=== PATIENT | male | born 1940 | race Caucasian/White ===

== ENCOUNTER 2017-01-25 12:16 | Emergency (ER) | payer OTHER ==
[~2017-01-25] VITALS: Ht 182.9 cm; Wt 76.3 kg
[2017-01-25 13:06] LABS: MCH 33.5 PG (29.0-34.0); MCHC 34.7 G/DL (30.0-36.0); MCV 96.4 FL (86-99); MEAN PLAT.VOLUME 9.6 uM^3 (9.0-12.4); PLATELET COUNT 253 K/uL (156-360); RBC DIS.WIDTH-SD 46.6 % (39-53); RED BLOOD COUNT 3.94 M/uL (4.00-5.50); WHITE BLOOD COUNT 7.3 K/uL (4.1-10.2)
[2017-01-25 13:12] LABS: INTER. NORMALIZED RATIO 1.8; PROTHROMBIN TIME 20.2 SEC (10.2-12.9)
[2017-01-25 13:15] LABS: CHLORIDE 99 mEq/L (99-109); POTASSIUM 4.4 mEq/L (3.7-5.4); SODIUM 135 mEq/L (136-147)
[2017-01-25 13:16] LABS: GLUCOSE 99 mg/dL (70-99)
[2017-01-25 13:18] LABS: ANION GAP 11 MEQ/L (2-14)
[2017-01-25 13:21] LABS: GFR ESTIMATE (CALCULATED) > 59 mL/min/; UREA NITROGEN (BUN) 19 mg/dL (9-23)
[2017-01-25 14:23] VITALS: BP 156/92
[2017-01-25] MEDS ORDERED: XARELTO15 MG PO (14:23)
== END 2017-01-25 14:24 | disposition home or self-care (01) ==
LOC: EME 12:16
DX: R04.0 Epistaxis (principal); Z79.01 Long term (current) use of anticoagulants; I48.2 Chronic atrial fibrillation; Z95.1 Presence of aortocoronary bypass graft; Z87.891 Personal history of nicotine dependence
CPT/HCPCS: 80048; 85027; 85610; 86850; 86900; 86901; 99281; 99284

== ENCOUNTER 2017-05-25 22:22 | Observation (INO) | payer OTHER ==
[~2017-05-25] VITALS: Ht 182.9 cm; Wt 83.3 kg
[~2017-05-25 22:22] MED LIST: XARELTO15 MG PO
[2017-05-25 22:45] LABS: HEMATOCRIT 37.1 % (38.0-50.0); HEMOGLOBIN 13.3 G/DL (12.5-16.6); MCH 34.2 PG (29.0-34.0); MCHC 35.8 G/DL (30.0-36.0); MCV 95.4 FL (86-99); PLATELET COUNT 263 K/uL (156-360); RBC DIS.WIDTH-CV 13.4 % (11.8-14.6); RBC DIS.WIDTH-SD 47.2 % (39-53); RED BLOOD COUNT 3.89 M/uL (4.00-5.50); WHITE BLOOD COUNT 7.7 K/uL (4.1-10.2)
[2017-05-25 22:58] LABS: ALBUMIN 4.2 g/dL (3.2-4.8)
[2017-05-25 22:59] LABS: CHLORIDE 98 mEq/L (99-109); SODIUM 131 mEq/L (136-147)
[2017-05-25 23:01] LABS: GLUCOSE 122 mg/dL (70-99); TOTAL PROTEIN 7.2 g/dL (6.4-8.3)
[2017-05-25 23:03] LABS: TOTAL BILIRUBIN 0.9 mg/dL (0.0-1.0)
[2017-05-25 23:04] LABS: ALKALINE PHOSPHATASE 71 IU/L (3-129)
[2017-05-25 23:05] LABS: CREATININE 0.8 mg/dL (0.6-1.3); GFR ESTIMATE (CALCULATED) > 59 mL/min/ (58.99-99999)
[2017-05-25 23:06] LABS: AST (GOT) 21 IU/L (2-34); UREA NITROGEN (BUN) 13 mg/dL (9-23)
[2017-05-25 23:06] LABS: APPEARANCE CLEAR ((CLEAR)); BILIRUBIN NEGATIVE; BLOOD NEGATIVE; COLOR YELLOW ((YELLOW)); GLUCOSE (STRIP) NEGATIVE; KETONES NEGATIVE; LEUKOCYTES NEGATIVE; NITRITE NEGATIVE; PROTEIN (STRIP) NEGATIVE; SPECIFIC GRAVITY 1.012 (1.000-1.030); UCUL ADDED? NO; UROBILINOGEN 0.2 MG/DL (0.2-1.0)
[2017-05-25 23:07] LABS: ALT (GPT) 26 IU/L (3-49)
[2017-05-25 23:08] LABS: LIPASE 8 U/L (1.0-51.0)
[2017-05-26 04:20] LABS: TROP-I INTERPRETATION NEGATIVE; TROPONIN-I < 0.01 ng/mL (0.0-0.30)
[2017-05-26 13:24] LABS: TROP-I INTERPRETATION NEGATIVE; TROPONIN-I < 0.01 ng/mL (0.0-0.30)
[2017-05-26] MEDS ORDERED: ALENDRONATE SOD70 MG PO (15:25)
[2017-05-26] MEDS ORDERED: PROTONIX40 MG PO (15:26)
[2017-05-26] MEDS ORDERED: ASPIR 8181 M1 PO (15:26)
[2017-05-26] MEDS ORDERED: IMDUR60 MG PO (15:26)
[2017-05-26] MEDS ORDERED: VITAMIN D31000 UNI2 PO (15:27)
[2017-05-26] MEDS ORDERED: CYANOCOBALAM1000 MCG PO (15:28)
[2017-05-26] MEDS ORDERED: ONCE DAILY1 EACH PO (15:28)
[2017-05-26] MEDS ORDERED: ALPHA LIPOIC ACID PO (15:29)
[2017-05-26] MEDS ORDERED: PRINIVIL5 MG PO (15:30)
[2017-05-26] MEDS ORDERED: METOPROLOL TART25 MG PO (15:30)
[2017-05-26] MEDS ORDERED: MYSOLINE50 MG PO (15:30)
[2017-05-26 15:31] VITALS: BP 134/90
[2017-05-26] MEDS ORDERED: LIPITOR20 MG PO (15:31)
[2017-05-26] MEDS ORDERED: NORVASC5 MG PO (15:31)
[2017-05-26] MEDS ORDERED: FLOMAX0.4 MG PO (15:32)
[2017-05-26] MEDS ORDERED: NAPROSYN500 MG PO (15:32)
[2017-05-26] MEDS ORDERED: GABAPENTIN100 MG PO (15:32)
[2017-05-26] MEDS ORDERED: XARELTO20 MG PO (15:33)
[2017-05-26] MEDS ORDERED: CILOSTAZOL100 MG PO (15:33)
[2017-05-26 18:14] LABS: TROP-I INTERPRETATION NEGATIVE; TROPONIN-I < 0.01 ng/mL (0.0-0.30)
[2017-05-26 19:30] VITALS: BP 142/86
[2017-05-26 21:40] VITALS: BP 128/89
[2017-05-27 06:26] LABS: HEMATOCRIT 37.6 % (38.0-50.0); HEMOGLOBIN 12.9 G/DL (12.5-16.6); MCH 33.3 PG (29.0-34.0); MCHC 34.3 G/DL (30.0-36.0); MCV 97.2 FL (86-99); PLATELET COUNT 254 K/uL (156-360); RBC DIS.WIDTH-CV 13.8 % (11.8-14.6); RBC DIS.WIDTH-SD 49.6 % (39-53); RED BLOOD COUNT 3.87 M/uL (4.00-5.50)
[2017-05-27 07:13] LABS: ALBUMIN 3.5 G/DL (3.2-4.8); ALKALINE PHOSPHATASE 61 IU/L (3-129); ALT (GPT) 19 IU/L (3-49); AST (GOT) 16 IU/L (2-34); CHLORIDE 98 MEQ/L (99-109); CREATININE 0.9 MG/DL (0.6-1.3); GFR ESTIMATE (CALCULATED) > 59 mL/min/ (58.99-99999); GLUCOSE 114 mg/dL (70-99); POTASSIUM 4.7 MEQ/L (3.7-5.4); SODIUM 134 MEQ/L (136-147); UREA NITROGEN (BUN) 14 mg/dL (9-23)
[2017-05-27 09:41] VITALS: BP 135/87
[2017-05-27 12:24] VITALS: BP 94/64
[2017-05-27 12:58] VITALS: BP 121/77
== END 2017-05-27 15:08 | disposition home or self-care (01) ==
LOC: EME 22:22 → EDOF 05-26 08:48 → ENRESERV 05-26 08:51 → EDOF 05-26 09:23 → ENRESERV 05-26 11:07 → 5WEST 05-26 12:24
PROVIDERS: Emergency Medicine; Internal Medicine
DX: R10.11 Right upper quadrant pain (principal); R10.13 Epigastric pain; K21.9 Gastro-esophageal reflux disease without esophagitis; I25.10 Atherosclerotic heart disease of native coronary artery without angina pectoris; I48.91 Unspecified atrial fibrillation; I73.9 Peripheral vascular disease, unspecified; E78.5 Hyperlipidemia, unspecified; I11.0 Hypertensive heart disease with heart failure; I50.9 Heart failure, unspecified; E11.40 Type 2 diabetes mellitus with diabetic neuropathy, unspecified; N40.0 Benign prostatic hyperplasia without lower urinary tract symptoms; Z95.1 Presence of aortocoronary bypass graft; Z79.01 Long term (current) use of anticoagulants; Z79.02 Long term (current) use of antithrombotics/antiplatelets; Z83.3 Family history of diabetes mellitus; Z80.8 Family history of malignant neoplasm of other organs or systems
CPT/HCPCS: 71275; 74177; 76705; 78227; 80053; 81003; 83690; 83880; 84484; 85027; 93005; 99281; 99284; A9537; G0378; J1940; J2270; J2405; J2805; J7030

== ENCOUNTER 2017-06-28 21:43 | Emergency (ER) | payer OTHER ==
[~2017-06-28] VITALS: Ht 182.9 cm; Wt 85.0 kg
[~2017-06-28 21:43] MED LIST changes: +ALENDRONATE SOD70 MG PO; +ALPHA LIPOIC ACID PO; +ASPIR 8181 M1 PO; +CILOSTAZOL100 MG PO; +CYANOCOBALAM1000 MCG PO; +FLOMAX0.4 MG PO; +GABAPENTIN100 MG PO; +IMDUR60 MG PO; +LIPITOR20 MG PO; +METOPROLOL TART25 MG PO; +MYSOLINE50 MG PO; +NAPROSYN500 MG PO; +NORVASC5 MG PO; +ONCE DAILY1 EACH PO; +PRINIVIL5 MG PO; +PROTONIX40 MG PO; +VITAMIN D31000 UNI2 PO; +XARELTO20 MG PO
[2017-06-28] MEDS ORDERED: PERCOCET 5/31 TABLET PO (23:13)
[2017-06-28 23:41] VITALS: BP 127/79
== END 2017-06-28 23:41 | disposition home or self-care (01) ==
LOC: EME 21:43
PROC: 2W3HX1Z Immobilization of Left Thumb using Splint (ICD-10-PCS; principal; 2017-06-28)
DX: S62.512A Displaced fracture of proximal phalanx of left thumb, initial encounter for closed fracture (principal); W00.0XXA Fall on same level due to ice and snow, initial encounter
CPT/HCPCS: 73130; 99281; 99284

== ENCOUNTER → 2017-07-28 | Outpatient (CLI) | payer MEDICARE, OTHER ==
[~2017-07-28] MED LIST changes: +PERCOCET 5/31 TABLET PO
== END | disposition home or self-care (01) ==
LOC: CDC 15:07
DX: Z01.810 Encounter for preprocedural cardiovascular examination (principal); I48.91 Unspecified atrial fibrillation; R94.31 Abnormal electrocardiogram [ECG] [EKG]
CPT/HCPCS: 93000

== ENCOUNTER 2017-09-16 15:19 | Inpatient (IN) | payer OTHER ==
[~2017-09-16] VITALS: Ht 182.9 cm; Wt 70.2 kg
[2017-09-16 15:56] LABS: HEMATOCRIT 32.1 % (38.0-50.0); HEMOGLOBIN 11.8 G/DL (12.5-16.6); MCH 34.5 PG (29.0-34.0); MCHC 36.8 G/DL (30.0-36.0); MCV 93.9 FL (86-99); PLATELET COUNT 278 K/uL (156-360); RBC DIS.WIDTH-CV 12.9 % (11.8-14.6); RBC DIS.WIDTH-SD 44.6 % (39-53); RED BLOOD COUNT 3.42 M/uL (4.00-5.50); WHITE BLOOD COUNT 5.9 K/uL (4.1-10.2)
[2017-09-16 16:05] LABS: CHLORIDE 89 mEq/L (99-109); POTASSIUM 4.5 mEq/L (3.7-5.4); SODIUM 122 mEq/L (136-147)
[2017-09-16 16:07] LABS: GLUCOSE 108 mg/dL (70-99)
[2017-09-16 16:11] LABS: CREATININE 0.8 mg/dL (0.6-1.3); GFR ESTIMATE (CALCULATED) > 59 mL/min/ (58.99-99999)
[2017-09-16 16:12] LABS: UREA NITROGEN (BUN) 11 mg/dL (9-23)
[2017-09-16 16:19] LABS: TROP-I INTERPRETATION NEGATIVE; TROPONIN-I < 0.01 ng/mL (0.0-0.30)
[2017-09-16 17:10] LABS: APPEARANCE CLEAR ((CLEAR)); BILIRUBIN NEGATIVE; BLOOD NEGATIVE; COLOR YELLOW ((YELLOW)); GLUCOSE (STRIP) NEGATIVE; KETONES 5; LEUKOCYTES TRACE; NITRITE NEGATIVE; PROTEIN (STRIP) NEGATIVE
[2017-09-16 17:16] LABS: BACTERIA 1+ /HPF; EPITHELIAL CELLS RARE /HPF; MUCUS NONE SEEN /LPF; RED BLOOD CELLS 0-5 /HPF (0-5); UCUL ADDED? NO; WHITE BLOOD CELLS 0-5 /HPF (0-5)
[2017-09-16] MEDS ORDERED: ALPHA-LIPOIC A300 MG PO (17:20)
[2017-09-16] MEDS ORDERED: ARTIFICIAL TEAR1510 BOTH EYES (17:26)
[2017-09-16] MEDS ORDERED: TYLENOL EXTRA500 MG PO (17:26)
[2017-09-16] MEDS ORDERED: CYMBALTA20 MG PO (17:27)
[2017-09-16 19:32] VITALS: BP 141/91
[2017-09-16 19:46] VITALS: BP 141/91
[2017-09-16 21:07] VITALS: BP 114/84
[2017-09-16 22:07] LABS: TROP-I INTERPRETATION NEGATIVE; TROPONIN-I < 0.01 ng/mL (0.0-0.30)
[2017-09-17] VITALS (8 sets, daily range): BP systolic 95–154; BP diastolic 65–99
[2017-09-17 05:58] LABS: HEMOGLOBIN 11.2 G/DL (12.5-16.6); MCH 33.5 PG (29.0-34.0); MCV 95.8 FL (86-99); PLATELET COUNT 304 K/uL (156-360); RBC DIS.WIDTH-CV 13.2 % (11.8-14.6); RBC DIS.WIDTH-SD 46.9 % (39-53); RED BLOOD COUNT 3.34 M/uL (4.00-5.50); WHITE BLOOD COUNT 6.2 K/uL (4.1-10.2)
[2017-09-17 06:13] LABS: TROP-I INTERPRETATION NEGATIVE; TROPONIN-I < 0.01 ng/mL (0.0-0.30)
[2017-09-17 09:45] LABS: CHLORIDE 92 MEQ/L (99-109); CREATININE 0.6 MG/DL (0.6-1.3); GFR ESTIMATE (CALCULATED) > 59 mL/min/ (58.99-99999); GLUCOSE 141 mg/dL (70-99); SODIUM 123 MEQ/L (136-147); UREA NITROGEN (BUN) 9 mg/dL (9-23)
[2017-09-17 11:39] LABS: INTER. NORMALIZED RATIO 1.9
[2017-09-17 11:41] LABS: PTT 37.4 SEC (25-37)
[2017-09-17 20:44] LABS: TROP-I INTERPRETATION NEGATIVE; TROPONIN-I 0.02 ng/mL (0.0-0.30)
[2017-09-17 23:10] LABS: CHLORIDE 94 mEq/L (99-109); POTASSIUM 4.2 mEq/L (3.7-5.4); SODIUM 127 mEq/L (136-147)
[2017-09-17 23:11] LABS: GLUCOSE 113 mg/dL (70-99)
[2017-09-17 23:15] LABS: CREATININE 0.9 mg/dL (0.6-1.3); GFR ESTIMATE (CALCULATED) > 59 mL/min/ (58.99-99999)
[2017-09-17 23:18] LABS: UREA NITROGEN (BUN) 28 mg/dL (9-23)
[2017-09-18] VITALS (9 sets, daily range): BP systolic 94–186; BP diastolic 62–112
[2017-09-18 02:04] LABS: TROP-I INTERPRETATION NEGATIVE; TROPONIN-I 0.02 ng/mL (0.0-0.30)
[2017-09-18 07:02] LABS: TROP-I INTERPRETATION NEGATIVE; TROPONIN-I < 0.01 ng/mL (0.0-0.30)
[2017-09-18 08:48] LABS: CHLORIDE 96 MEQ/L (99-109); CREATININE 0.8 MG/DL (0.6-1.3); GFR ESTIMATE (CALCULATED) > 59 mL/min/ (58.99-99999); GLUCOSE 110 mg/dL (70-99); POTASSIUM 4.1 MEQ/L (3.7-5.4); SODIUM 130 MEQ/L (136-147); UREA NITROGEN (BUN) 22 mg/dL (9-23)
[2017-09-18 09:17] LABS: THYROTROPIN (TSH) 2.5 MIU/L (0.4-5.5)
[2017-09-18 10:00] LABS: HEMATOCRIT 35.7 % (38.0-50.0); HEMOGLOBIN 12.8 G/DL (12.5-16.6); MCHC 35.9 G/DL (30.0-36.0); MCV 94.9 FL (86-99); PLATELET COUNT 313 K/uL (156-360); RBC DIS.WIDTH-CV 13.2 % (11.8-14.6); RBC DIS.WIDTH-SD 46.5 % (39-53); RED BLOOD COUNT 3.76 M/uL (4.00-5.50); WHITE BLOOD COUNT 7.3 K/uL (4.1-10.2)
[2017-09-18 16:21] LABS: CHLORIDE 92 MEQ/L (99-109); CREATININE 0.7 MG/DL (0.6-1.3); GFR ESTIMATE (CALCULATED) > 59 mL/min/ (58.99-99999); GLUCOSE 117 mg/dL (70-99); SODIUM 130 MEQ/L (136-147); UREA NITROGEN (BUN) 13 mg/dL (9-23)
[2017-09-18 22:49] LABS: CHLORIDE 93 mEq/L (99-109); POTASSIUM 3.8 mEq/L (3.7-5.4); SODIUM 125 mEq/L (136-147)
[2017-09-18 22:50] LABS: GLUCOSE 143 mg/dL (70-99)
[2017-09-18 22:54] LABS: CREATININE 0.8 mg/dL (0.6-1.3); GFR ESTIMATE (CALCULATED) > 59 mL/min/ (58.99-99999)
[2017-09-18 22:57] LABS: UREA NITROGEN (BUN) 22 mg/dL (9-23)
[2017-09-19 03:04] VITALS: BP 118/70
[2017-09-19 03:05] VITALS: BP 118/70
[2017-09-19 06:23] LABS: HEMATOCRIT 35.6 % (38.0-50.0); HEMOGLOBIN 12.5 G/DL (12.5-16.6); MCH 33.3 PG (29.0-34.0); MCHC 35.1 G/DL (30.0-36.0); MCV 94.9 FL (86-99); PLATELET COUNT 288 K/uL (156-360); RBC DIS.WIDTH-CV 13.5 % (11.8-14.6); RBC DIS.WIDTH-SD 47.3 % (39-53); RED BLOOD COUNT 3.75 M/uL (4.00-5.50); WHITE BLOOD COUNT 10.6 K/uL (4.1-10.2)
[2017-09-19 07:22] LABS: CHLORIDE 95 MEQ/L (99-109); CREATININE 0.8 MG/DL (0.6-1.3); GFR ESTIMATE (CALCULATED) > 59 mL/min/ (58.99-99999); GLUCOSE 121 mg/dL (70-99); POTASSIUM 3.7 MEQ/L (3.7-5.4); SODIUM 126 MEQ/L (136-147); UREA NITROGEN (BUN) 20 mg/dL (9-23)
[2017-09-19 07:28] VITALS: BP 127/80
[2017-09-19 11:38] LABS: HEMOGLOBIN A1c (GLYCOHEMOGLOB) 5.9 % (Below 5.7)
[2017-09-19 12:00] VITALS: BP 132/78
[2017-09-19 20:09] VITALS: BP 123/80
[2017-09-19 23:55] VITALS: BP 140/79
[2017-09-20 04:00] VITALS: BP 132/84
[2017-09-20 05:00] LABS: BASOPHIL (%) 0.3 % (0-1); EOSINOPHIL (%) 3.5 % (0-5); EOSINOPHIL COUNT 0.3 K/uL (0-0.3); HEMATOCRIT 32.7 % (38.0-50.0); IMMATURE GRANULOCYTE (%) 0.3 % (0.0-0.7); LYMPHOCYTE (%) 14.8 % (15-42); LYMPHOCYTE COUNT 1.3 K/uL (1.0-2.8); MCH 34.7 PG (29.0-34.0); MCHC 36.7 G/DL (30.0-36.0); MCV 94.5 FL (86-99); MONOCYTE (%) 10.8 % (3-12); NEUTROPHIL (%) 70.3 % (45-76); NEUTROPHIL COUNT 6.2 K/uL (1.8-6.4); PLATELET COUNT 302 K/uL (156-360); RBC DIS.WIDTH-CV 13.3 % (11.8-14.6); RBC DIS.WIDTH-SD 46.3 % (39-53); RED BLOOD COUNT 3.46 M/uL (4.00-5.50); WHITE BLOOD COUNT 8.9 K/uL (4.1-10.2)
[2017-09-20 05:28] LABS: CHLORIDE 98 mEq/L (99-109); POTASSIUM 4.1 mEq/L (3.7-5.4); SODIUM 128 mEq/L (136-147)
[2017-09-20 05:30] LABS: GLUCOSE 111 mg/dL (70-99)
[2017-09-20 05:34] LABS: CREATININE 0.8 mg/dL (0.6-1.3); GFR ESTIMATE (CALCULATED) > 59 mL/min/ (58.99-99999)
[2017-09-20 05:35] LABS: UREA NITROGEN (BUN) 14 mg/dL (9-23)
[2017-09-20 07:40] VITALS: BP 134/96
== END 2017-09-20 15:36 | disposition home or self-care (01) | DRG 287 ==
LOC: EME 15:19 → 4EAST 17:06 → EDOF 17:06 → ENRESERV 17:08 → 4EAST 19:19
PROVIDERS: Emergency Medicine; Internal Medicine; Internal Medicine Cardiovascular Disease; Internal Medicine Nephrology
DX: I25.110 Atherosclerotic heart disease of native coronary artery with unstable angina pectoris (principal); I25.700 Atherosclerosis of coronary artery bypass graft(s), unspecified, with unstable angina pectoris; T82.855A Stenosis of coronary artery stent, initial encounter; E22.2 Syndrome of inappropriate secretion of antidiuretic hormone; T43.215A Adverse effect of selective serotonin and norepinephrine reuptake inhibitors, initial encounter; T46.4X5A Adverse effect of angiotensin-converting-enzyme inhibitors, initial encounter; T40.605A Adverse effect of unspecified narcotics, initial encounter; I48.0 Paroxysmal atrial fibrillation; I48.2 Chronic atrial fibrillation; E86.0 Dehydration; I25.84 Coronary atherosclerosis due to calcified coronary lesion; E11.65 Type 2 diabetes mellitus with hyperglycemia; E87.2 Acidosis; E11.51 Type 2 diabetes mellitus with diabetic peripheral angiopathy without gangrene; R19.7 Diarrhea, unspecified; E11.40 Type 2 diabetes mellitus with diabetic neuropathy, unspecified; I10 Essential (primary) hypertension; K21.9 Gastro-esophageal reflux disease without esophagitis; E78.5 Hyperlipidemia, unspecified; N40.0 Benign prostatic hyperplasia without lower urinary tract symptoms; Z95.820 Peripheral vascular angioplasty status with implants and grafts; Z87.891 Personal history of nicotine dependence; Z79.01 Long term (current) use of anticoagulants; Z79.82 Long term (current) use of aspirin
CPT/HCPCS: 71045; 71046; 71260; 76882; 80048; 80048 91; 81003; 82533 91; 82948; 83036; 83930; 83935; 84300; 84443; 84484; 85025; 85027; 85347; 85610; 85730; 87449; 87493; 93005; 94799; 99281; 99285; C1769; C1887; J0153; J0456; J0696; J1644; J2250; J2405; J3010; J7030

== ENCOUNTER 2017-10-12 21:21 | Inpatient (IN) | payer OTHER ==
[~2017-10-12] VITALS: Ht 182.9 cm; Wt 95.6 kg
[~2017-10-12 21:21] MED LIST changes: +ALPHA-LIPOIC A300 MG PO; +ARTIFICIAL TEAR1510 BOTH EYES; +CYMBALTA20 MG PO; +LASIX20 MG PO; +LYRICA75 MG PO; +TYLENOL EXTRA500 MG PO
[2017-10-13 10:59] VITALS: BP 138/91
[2017-10-13 11:27] LABS: INTER. NORMALIZED RATIO 1.4
[2017-10-13 19:07] LABS: HEMATOCRIT 31.5 % (38.0-50.0); HEMOGLOBIN 10.9 G/DL (12.5-16.6); MCH 33.7 PG (29.0-34.0); MCHC 34.6 G/DL (30.0-36.0); MCV 97.5 FL (86-99); PLATELET COUNT 246 K/uL (156-360); RBC DIS.WIDTH-CV 13.8 % (11.8-14.6); RBC DIS.WIDTH-SD 49.9 % (39-53); RED BLOOD COUNT 3.23 M/uL (4.00-5.50); WHITE BLOOD COUNT 8.5 K/uL (4.1-10.2)
[2017-10-13 19:27] LABS: TROP-I INTERPRETATION NEGATIVE; TROPONIN-I < 0.01 ng/mL (0.0-0.30)
[2017-10-13 19:29] LABS: CHLORIDE 104 MEQ/L (99-109); CREATININE 0.6 MG/DL (0.6-1.3); GFR ESTIMATE (CALCULATED) > 59 mL/min/ (58.99-99999); GLUCOSE 153 mg/dL (70-99); SODIUM 136 MEQ/L (136-147); UREA NITROGEN (BUN) 12 mg/dL (9-23)
[2017-10-14] VITALS (8 sets, daily range): BP systolic 110–152; BP diastolic 58–89
[2017-10-14 03:46] LABS: HEMATOCRIT 32.6 % (38.0-50.0); HEMOGLOBIN 11.2 G/DL (12.5-16.6); MCH 33.2 PG (29.0-34.0); MCHC 34.4 G/DL (30.0-36.0); MCV 96.7 FL (86-99); PLATELET COUNT 209 K/uL (156-360); RBC DIS.WIDTH-CV 15.3 % (11.8-14.6); RBC DIS.WIDTH-SD 54.2 % (39-53); RED BLOOD COUNT 3.37 M/uL (4.00-5.50); WHITE BLOOD COUNT 11.5 K/uL (4.1-10.2)
[2017-10-14 03:57] LABS: CHLORIDE 107 mEq/L (99-109); POTASSIUM 4.7 mEq/L (3.7-5.4); SODIUM 139 mEq/L (136-147)
[2017-10-14 03:58] LABS: GLUCOSE 176 mg/dL (70-99)
[2017-10-14 04:02] LABS: CREATININE 0.8 mg/dL (0.6-1.3); GFR ESTIMATE (CALCULATED) > 59 mL/min/ (58.99-99999)
[2017-10-14 04:03] LABS: UREA NITROGEN (BUN) 13 mg/dL (9-23)
[2017-10-14 04:07] LABS: TROP-I INTERPRETATION NEGATIVE; TROPONIN-I 0.02 ng/mL (0.0-0.30)
[2017-10-14 12:46] LABS: BASOPHIL (%) 0.4 % (0-1); EOSINOPHIL (%) 0.4 % (0-5); IMMATURE GRANULOCYTE (%) 0.3 % (0.0-0.7); LYMPHOCYTE (%) 17.6 % (15-42); LYMPHOCYTE COUNT 1.2 K/uL (1.0-2.8); MCH 32.9 PG (29.0-34.0); MCHC 34.1 G/DL (30.0-36.0); MCV 96.4 FL (86-99); MONOCYTE (%) 15.9 % (3-12); MONOCYTE COUNT 1.1 K/uL (0-0.8); NEUTROPHIL (%) 65.4 % (45-76); NEUTROPHIL COUNT 4.5 K/uL (1.8-6.4); PLATELET COUNT 192 K/uL (156-360); RBC DIS.WIDTH-CV 15.9 % (11.8-14.6); RBC DIS.WIDTH-SD 56.5 % (39-53); WHITE BLOOD COUNT 6.8 K/uL (4.1-10.2)
[2017-10-14 12:48] LABS: HEMOGLOBIN 9.2 G/DL (12.5-16.6)
[2017-10-15] VITALS (22 sets, daily range): BP systolic 92–161; BP diastolic 56–101
[2017-10-15 05:23] LABS: BASOPHIL (%) 0.4 % (0-1); EOSINOPHIL COUNT 0.3 K/uL (0-0.3); HEMATOCRIT 26.5 % (38.0-50.0); HEMOGLOBIN 9.1 G/DL (12.5-16.6); IMMATURE GRANULOCYTE (%) 0.4 % (0.0-0.7); LYMPHOCYTE (%) 20.7 % (15-42); LYMPHOCYTE COUNT 1.5 K/uL (1.0-2.8); MCH 33.3 PG (29.0-34.0); MCHC 34.3 G/DL (30.0-36.0); MCV 97.1 FL (86-99); MONOCYTE (%) 12.4 % (3-12); MONOCYTE COUNT 0.9 K/uL (0-0.8); NEUTROPHIL (%) 62.1 % (45-76); NEUTROPHIL COUNT 4.4 K/uL (1.8-6.4); PLATELET COUNT 191 K/uL (156-360); RBC DIS.WIDTH-CV 15.9 % (11.8-14.6); RBC DIS.WIDTH-SD 56.3 % (39-53); RED BLOOD COUNT 2.73 M/uL (4.00-5.50); WHITE BLOOD COUNT 7.1 K/uL (4.1-10.2)
[2017-10-15 05:54] LABS: CHLORIDE 99 MEQ/L (99-109); CREATININE 0.6 MG/DL (0.6-1.3); GFR ESTIMATE (CALCULATED) > 59 mL/min/ (58.99-99999); GLUCOSE 133 mg/dL (70-99); MAGNESIUM 1.4 mg/dl (1.3-2.7); PHOSPHORUS 3.2 mg/dL (2.5-4.9); POTASSIUM 4.6 MEQ/L (3.7-5.4); UREA NITROGEN (BUN) 9 mg/dL (9-23)
[2017-10-15 06:04] LABS: SODIUM 131 MEQ/L (136-147)
[2017-10-16] VITALS (16 sets, daily range): BP systolic 86–173; BP diastolic 57–104
[2017-10-16 06:13] LABS: BASOPHIL (%) 0.4 % (0-1); EOSINOPHIL (%) 0.8 % (0-5); EOSINOPHIL COUNT 0.1 K/uL (0-0.3); HEMATOCRIT 27.2 % (38.0-50.0); HEMOGLOBIN 9.3 G/DL (12.5-16.6); IMMATURE GRANULOCYTE (%) 0.7 % (0.0-0.7); LYMPHOCYTE (%) 9.2 % (15-42); MCH 32.5 PG (29.0-34.0); MCHC 34.2 G/DL (30.0-36.0); MCV 95.1 FL (86-99); MONOCYTE (%) 8.5 % (3-12); MONOCYTE COUNT 0.9 K/uL (0-0.8); NEUTROPHIL (%) 80.4 % (45-76); NEUTROPHIL COUNT 8.5 K/uL (1.8-6.4); PLATELET COUNT 226 K/uL (156-360); RBC DIS.WIDTH-CV 15.1 % (11.8-14.6); RBC DIS.WIDTH-SD 52.9 % (39-53); RED BLOOD COUNT 2.86 M/uL (4.00-5.50); WHITE BLOOD COUNT 10.6 K/uL (4.1-10.2)
[2017-10-17] VITALS (9 sets, daily range): BP systolic 90–156; BP diastolic 59–94
[2017-10-17 06:02] LABS: BASOPHIL (%) 0.3 % (0-1); EOSINOPHIL (%) 1.3 % (0-5); EOSINOPHIL COUNT 0.1 K/uL (0-0.3); HEMATOCRIT 25.2 % (38.0-50.0); HEMOGLOBIN 8.6 G/DL (12.5-16.6); IMMATURE GRANULOCYTE (%) 0.4 % (0.0-0.7); LYMPHOCYTE (%) 12.1 % (15-42); LYMPHOCYTE COUNT 1.1 K/uL (1.0-2.8); MCH 32.8 PG (29.0-34.0); MCHC 34.1 G/DL (30.0-36.0); MCV 96.2 FL (86-99); MONOCYTE (%) 9.7 % (3-12); MONOCYTE COUNT 0.9 K/uL (0-0.8); NEUTROPHIL (%) 76.2 % (45-76); NEUTROPHIL COUNT 7.2 K/uL (1.8-6.4); PLATELET COUNT 219 K/uL (156-360); RBC DIS.WIDTH-CV 14.6 % (11.8-14.6); RBC DIS.WIDTH-SD 51.2 % (39-53); RED BLOOD COUNT 2.62 M/uL (4.00-5.50); WHITE BLOOD COUNT 9.4 K/uL (4.1-10.2)
[2017-10-17 06:28] LABS: CHLORIDE 93 MEQ/L (99-109); CREATININE 0.6 MG/DL (0.6-1.3); GFR ESTIMATE (CALCULATED) > 59 mL/min/ (58.99-99999); GLUCOSE 126 mg/dL (70-99); POTASSIUM 4.1 MEQ/L (3.7-5.4); SODIUM 125 MEQ/L (136-147); UREA NITROGEN (BUN) 10 mg/dL (9-23)
[2017-10-17 17:29] LABS: CHLORIDE 93 MEQ/L (99-109); CREATININE 0.7 MG/DL (0.6-1.3); GFR ESTIMATE (CALCULATED) > 59 mL/min/ (58.99-99999); GLUCOSE 126 mg/dL (70-99); POTASSIUM 4.4 MEQ/L (3.7-5.4); SODIUM 124 MEQ/L (136-147); THYROTROPIN (TSH) 3.3 MIU/L (0.4-5.5); UREA NITROGEN (BUN) 11 mg/dL (9-23)
[2017-10-18 03:00] VITALS: BP 101/68
[2017-10-18 06:22] LABS: CHLORIDE 95 MEQ/L (99-109); CREATININE 0.7 MG/DL (0.6-1.3); GFR ESTIMATE (CALCULATED) > 59 mL/min/ (58.99-99999); GLUCOSE 119 mg/dL (70-99); POTASSIUM 4.1 MEQ/L (3.7-5.4); SODIUM 126 MEQ/L (136-147); UREA NITROGEN (BUN) 12 mg/dL (9-23)
[2017-10-18 08:48] VITALS: BP 125/68
[2017-10-18 11:27] VITALS: BP 102/57
[2017-10-18 12:16] LABS: CREATINE KINASE 34 IU/L (1-294)
[2017-10-18 15:34] VITALS: BP 121/69
[2017-10-18 15:43] LABS: CHLORIDE 96 MEQ/L (99-109); CREATININE 0.7 MG/DL (0.6-1.3); GFR ESTIMATE (CALCULATED) > 59 mL/min/ (58.99-99999); GLUCOSE 103 mg/dL (70-99); POTASSIUM 4.4 MEQ/L (3.7-5.4); SODIUM 129 MEQ/L (136-147); UREA NITROGEN (BUN) 10 mg/dL (9-23)
[2017-10-18 20:05] VITALS: BP 155/87
[2017-10-18 23:57] VITALS: BP 134/83
[2017-10-19 04:12] VITALS: BP 127/71
[2017-10-19 06:13] LABS: CHLORIDE 97 MEQ/L (99-109); CREATININE 0.8 MG/DL (0.6-1.3); GFR ESTIMATE (CALCULATED) > 59 mL/min/ (58.99-99999); GLUCOSE 112 mg/dL (70-99); POTASSIUM 4.4 MEQ/L (3.7-5.4); SODIUM 129 MEQ/L (136-147); UREA NITROGEN (BUN) 13 mg/dL (9-23)
[2017-10-19 08:45] VITALS: BP 174/81
[2017-10-19 11:31] VITALS: BP 111/72
[2017-10-19 15:50] VITALS: BP 126/78
[2017-10-19 19:22] VITALS: BP 141/71
[2017-10-19 21:40] VITALS: BP 167/87
[2017-10-20] VITALS (8 sets, daily range): BP systolic 110–151; BP diastolic 67–87
[2017-10-20 05:21] LABS: BASOPHIL (%) 0.5 % (0-1); EOSINOPHIL (%) 4.6 % (0-5); EOSINOPHIL COUNT 0.4 K/uL (0-0.3); HEMATOCRIT 25.3 % (38.0-50.0); HEMOGLOBIN 8.8 G/DL (12.5-16.6); IMMATURE GRANULOCYTE (%) 0.7 % (0.0-0.7); LYMPHOCYTE (%) 11.6 % (15-42); MCH 33.5 PG (29.0-34.0); MCHC 34.8 G/DL (30.0-36.0); MCV 96.2 FL (86-99); MONOCYTE COUNT 0.9 K/uL (0-0.8); NEUTROPHIL (%) 72.6 % (45-76); NEUTROPHIL COUNT 6.4 K/uL (1.8-6.4); RBC DIS.WIDTH-CV 14.6 % (11.8-14.6); RBC DIS.WIDTH-SD 50.7 % (39-53); RED BLOOD COUNT 2.63 M/uL (4.00-5.50); WHITE BLOOD COUNT 8.8 K/uL (4.1-10.2)
[2017-10-20 05:30] LABS: PLATELET COUNT 295 K/uL (156-360)
[2017-10-20 06:15] LABS: CHLORIDE 94 MEQ/L (99-109); CREATININE 0.7 MG/DL (0.6-1.3); GFR ESTIMATE (CALCULATED) > 59 mL/min/ (58.99-99999); GLUCOSE 115 mg/dL (70-99); POTASSIUM 4.1 MEQ/L (3.7-5.4); SODIUM 127 MEQ/L (136-147); UREA NITROGEN (BUN) 10 mg/dL (9-23)
[2017-10-21 03:15] VITALS: BP 107/69
[2017-10-21 05:33] LABS: BASOPHIL (%) 0.3 % (0-1); EOSINOPHIL (%) 5.6 % (0-5); EOSINOPHIL COUNT 0.5 K/uL (0-0.3); HEMATOCRIT 28.3 % (38.0-50.0); HEMOGLOBIN 9.6 G/DL (12.5-16.6); IMMATURE GRANULOCYTE (%) 0.8 % (0.0-0.7); LYMPHOCYTE (%) 15.3 % (15-42); LYMPHOCYTE COUNT 1.3 K/uL (1.0-2.8); MCH 32.5 PG (29.0-34.0); MCHC 33.9 G/DL (30.0-36.0); MCV 95.9 FL (86-99); MONOCYTE (%) 11.3 % (3-12); NEUTROPHIL (%) 66.7 % (45-76); NEUTROPHIL COUNT 5.9 K/uL (1.8-6.4); PLATELET COUNT 376 K/uL (156-360); RBC DIS.WIDTH-CV 14.8 % (11.8-14.6); RBC DIS.WIDTH-SD 51.5 % (39-53); RED BLOOD COUNT 2.95 M/uL (4.00-5.50); WHITE BLOOD COUNT 8.8 K/uL (4.1-10.2)
[2017-10-21 05:59] LABS: CHLORIDE 95 MEQ/L (99-109); CREATININE 0.8 MG/DL (0.6-1.3); GFR ESTIMATE (CALCULATED) > 59 mL/min/ (58.99-99999); GLUCOSE 123 mg/dL (70-99); SODIUM 132 MEQ/L (136-147); UREA NITROGEN (BUN) 15 mg/dL (9-23)
[2017-10-21 07:18] VITALS: BP 139/85
[2017-10-21 11:04] VITALS: BP 117/70
[2017-10-21 19:06] VITALS: BP 118/73
[2017-10-22] VITALS (8 sets, daily range): BP systolic 83–145; BP diastolic 52–88
[2017-10-22 06:09] LABS: CHLORIDE 97 MEQ/L (99-109); CREATININE 0.8 MG/DL (0.6-1.3); GFR ESTIMATE (CALCULATED) > 59 mL/min/ (58.99-99999); GLUCOSE 108 mg/dL (70-99); SODIUM 133 MEQ/L (136-147); UREA NITROGEN (BUN) 14 mg/dL (9-23)
[2017-10-22 06:19] LABS: POTASSIUM 4.9 MEQ/L (3.7-5.4)
[2017-10-23 03:45] VITALS: BP 141/77
[2017-10-23 05:29] LABS: BASOPHIL (%) 0.4 % (0-1); EOSINOPHIL (%) 7.6 % (0-5); EOSINOPHIL COUNT 0.7 K/uL (0-0.3); HEMATOCRIT 27.4 % (38.0-50.0); HEMOGLOBIN 9.3 G/DL (12.5-16.6); IMMATURE GRANULOCYTE (%) 0.3 % (0.0-0.7); LYMPHOCYTE (%) 15.8 % (15-42); LYMPHOCYTE COUNT 1.4 K/uL (1.0-2.8); MCH 33.1 PG (29.0-34.0); MCHC 33.9 G/DL (30.0-36.0); MCV 97.5 FL (86-99); MONOCYTE (%) 8.4 % (3-12); MONOCYTE COUNT 0.8 K/uL (0-0.8); NEUTROPHIL (%) 67.5 % (45-76); NEUTROPHIL COUNT 6.1 K/uL (1.8-6.4); PLATELET COUNT 421 K/uL (156-360); RBC DIS.WIDTH-CV 14.8 % (11.8-14.6); RBC DIS.WIDTH-SD 53.2 % (39-53); RED BLOOD COUNT 2.81 M/uL (4.00-5.50); WHITE BLOOD COUNT 9.1 K/uL (4.1-10.2)
[2017-10-23 05:57] LABS: CHLORIDE 99 MEQ/L (99-109); CREATININE 0.8 MG/DL (0.6-1.3); GFR ESTIMATE (CALCULATED) > 59 mL/min/ (58.99-99999); GLUCOSE 105 mg/dL (70-99); SODIUM 133 MEQ/L (136-147); UREA NITROGEN (BUN) 12 mg/dL (9-23)
[2017-10-23 07:45] VITALS: BP 156/95
[2017-10-23 11:10] VITALS: BP 91/57
[2017-10-23] MEDS ORDERED: HYDROCODON-ACE1 EAC9 PO (11:17)
[2017-10-23] MEDS ORDERED: HYDROCODON-ACE1 EAC7 PO (11:18)
[2017-10-23] MEDS ORDERED: DILAUDID1 MG/ML IV (11:18)
[2017-10-23] MEDS ORDERED: SENNA LAX8.6 MG PO (11:19)
== END 2017-10-23 13:17 | DRG 908 ==
LOC: ENRESERV 21:21 → 2SOUTH 10-13 09:39 → 4WEST 10-13 10:05 → 2SOUTH 10-13 10:17 → ENRESERV 10-13 11:12 → 2SOUTH 10-13 18:06 → ENRESERV 10-13 18:16 → 4WEST 10-14 10:55 → ENRESERV 10-17 00:25 → 4EAST 10-17 01:02
PROVIDERS: Family Medicine; Internal Medicine Critical Care Medicine; Internal Medicine Nephrology; Surgery
PROC: 06BP0ZZ Excision of Right Saphenous Vein, Open Approach (ICD-10-PCS; principal; 2017-10-13)
PROC: 041K09N Bypass Right Femoral Artery to Posterior Tibial Artery with Autologous Venous Tissue, Open Approach (ICD-10-PCS; principal; 2017-10-13)
PROC: 0Y950ZZ Drainage of Right Inguinal Region, Open Approach (ICD-10-PCS; 2017-10-14)
DX: T79.A21A Traumatic compartment syndrome of right lower extremity, initial encounter (principal); S80.11XA Contusion of right lower leg, initial encounter; E22.2 Syndrome of inappropriate secretion of antidiuretic hormone; I48.0 Paroxysmal atrial fibrillation; I25.10 Atherosclerotic heart disease of native coronary artery without angina pectoris; I95.9 Hypotension, unspecified; E83.42 Hypomagnesemia; I97.621 Postprocedural hematoma of a circulatory system organ or structure following other procedure; Z79.01 Long term (current) use of anticoagulants; I10 Essential (primary) hypertension; Z95.5 Presence of coronary angioplasty implant and graft; Z95.1 Presence of aortocoronary bypass graft; R09.02 Hypoxemia; E87.70 Fluid overload, unspecified; I70.221 Atherosclerosis of native arteries of extremities with rest pain, right leg; J44.9 Chronic obstructive pulmonary disease, unspecified; E86.0 Dehydration; E11.51 Type 2 diabetes mellitus with diabetic peripheral angiopathy without gangrene
CPT/HCPCS: 36415; 71046; 80048; 80048 91; 82550; 82948; 83735; 83880; 83930; 83935; 84100; 84443; 84484; 85025; 85025 GA; 85027; 85610; 86850; 86900; 86901; 86920; 87641; 93005; 93926; 97530 GO; 97530 GP; A6214; C9113; G0480; J0690; J1100; J1170; J1644; J1940; J2250; J2370; J2405; J2710; J2720; J3010; J3370; J3475; J7030; J7643; P9016; S0028

== ENCOUNTER 2017-10-23 11:53 | Inpatient (IN) | payer OTHER ==
[~2017-10-23] VITALS: Ht 182.9 cm; Wt 76.6 kg
[~2017-10-23 11:53] MED LIST changes: +DILAUDID1 MG/ML IV; +HYDROCODON-ACE1 EAC7 PO; +HYDROCODON-ACE1 EAC9 PO; +SENNA LAX8.6 MG PO
[2017-10-23 13:49] VITALS: BP 121/83
[2017-10-23 23:31] VITALS: BP 117/60
[2017-10-24 05:09] VITALS: BP 115/68
[2017-10-24 06:31] LABS: HEMATOCRIT 29.2 % (38.0-50.0); HEMOGLOBIN 9.6 G/DL (12.5-16.6); MCH 32.5 PG (29.0-34.0); MCHC 32.9 G/DL (30.0-36.0); PLATELET COUNT 432 K/uL (156-360); RBC DIS.WIDTH-SD 54.1 % (39-53); RED BLOOD COUNT 2.95 M/uL (4.00-5.50); WHITE BLOOD COUNT 9.6 K/uL (4.1-10.2)
[2017-10-24 06:55] LABS: ALBUMIN 2.9 G/DL (3.2-4.8); ALKALINE PHOSPHATASE 68 IU/L (3-129); ALT (GPT) 26 IU/L (3-49); AST (GOT) 21 IU/L (2-34); CHLORIDE 98 MEQ/L (99-109); CREATININE 0.9 MG/DL (0.6-1.3); GFR ESTIMATE (CALCULATED) > 59 mL/min/ (58.99-99999); GLUCOSE 109 mg/dL (70-99); POTASSIUM 4.5 MEQ/L (3.7-5.4); SODIUM 132 MEQ/L (136-147); TOTAL BILIRUBIN 0.7 MG/DL (0.0-1.0); TOTAL PROTEIN 5.1 G/DL (6.4-8.3); UREA NITROGEN (BUN) 13 mg/dL (9-23)
[2017-10-24 16:09] VITALS: BP 118/80
[2017-10-25 04:14] VITALS: BP 106/60
[2017-10-25 07:47] VITALS: BP 132/78
[2017-10-25 16:11] VITALS: BP 101/66
[2017-10-25 21:22] VITALS: BP 126/80
[2017-10-26 04:30] VITALS: BP 98/54
[2017-10-26 06:10] LABS: BASOPHIL (%) 0.2 % (0-1); EOSINOPHIL (%) 3.9 % (0-5); EOSINOPHIL COUNT 0.4 K/uL (0-0.3); HEMATOCRIT 27.9 % (38.0-50.0); HEMOGLOBIN 9.3 G/DL (12.5-16.6); IMMATURE GRANULOCYTE (%) 0.6 % (0.0-0.7); LYMPHOCYTE (%) 11.9 % (15-42); LYMPHOCYTE COUNT 1.3 K/uL (1.0-2.8); MCHC 33.3 G/DL (30.0-36.0); MCV 98.9 FL (86-99); MONOCYTE (%) 7.4 % (3-12); MONOCYTE COUNT 0.8 K/uL (0-0.8); NEUTROPHIL COUNT 8.5 K/uL (1.8-6.4); PLATELET COUNT 466 K/uL (156-360); RBC DIS.WIDTH-CV 15.2 % (11.8-14.6); RBC DIS.WIDTH-SD 54.6 % (39-53); RED BLOOD COUNT 2.82 M/uL (4.00-5.50); WHITE BLOOD COUNT 11.2 K/uL (4.1-10.2)
[2017-10-26 06:31] LABS: CHLORIDE 99 MEQ/L (99-109); CREATININE 0.8 MG/DL (0.6-1.3); GFR ESTIMATE (CALCULATED) > 59 mL/min/ (58.99-99999); GLUCOSE 115 mg/dL (70-99); POTASSIUM 4.3 MEQ/L (3.7-5.4); SODIUM 134 MEQ/L (136-147); UREA NITROGEN (BUN) 13 mg/dL (9-23)
[2017-10-26 14:57] VITALS: BP 131/86
[2017-10-27 05:21] VITALS: BP 119/67
[2017-10-27 16:18] VITALS: BP 107/65
[2017-10-28 04:16] VITALS: BP 100/64
[2017-10-28 15:10] VITALS: BP 100/63
[2017-10-28 22:00] VITALS: BP 110/60
[2017-10-29 04:00] VITALS: BP 115/81
[2017-10-29 07:38] VITALS: BP 141/81
[2017-10-29 15:08] VITALS: BP 101/60
[2017-10-30 06:14] VITALS: BP 117/74
[2017-10-30 16:03] VITALS: BP 125/80
[2017-10-30] MEDS ORDERED: HYDROCODON-ACE1 EAC7 PO (19:51)
[2017-10-30] MEDS ORDERED: LISINOPRIL2.5 MG PO (19:51)
[2017-10-31 05:59] VITALS: BP 127/82
[2017-10-31 05:59] LABS: HEMATOCRIT 29.8 % (38.0-50.0); HEMOGLOBIN 9.9 G/DL (12.5-16.6); MCH 32.5 PG (29.0-34.0); MCHC 33.2 G/DL (30.0-36.0); MCV 97.7 FL (86-99); PLATELET COUNT 436 K/uL (156-360); RBC DIS.WIDTH-CV 15.3 % (11.8-14.6); RED BLOOD COUNT 3.05 M/uL (4.00-5.50); WHITE BLOOD COUNT 6.9 K/uL (4.1-10.2)
[2017-10-31 06:52] LABS: CHLORIDE 98 MEQ/L (99-109); CREATININE 0.9 MG/DL (0.6-1.3); GFR ESTIMATE (CALCULATED) > 59 mL/min/ (58.99-99999); GLUCOSE 107 mg/dL (70-99); POTASSIUM 4.5 MEQ/L (3.7-5.4); SODIUM 132 MEQ/L (136-147); UREA NITROGEN (BUN) 11 mg/dL (9-23)
== END 2017-10-31 14:50 | disposition home health service (06) | DRG 949 ==
LOC: 3WEST 11:53 → ENPENDDIS 10-31 → 3WEST 10-31 14:50
PROVIDERS: Family Medicine Sports Medicine; Physical Medicine & Rehabilitation Pain Medicine
PROC: F07M0ZZ Range of Motion and Joint Mobility Treatment of Musculoskeletal System - Whole Body (ICD-10-PCS; principal; 2017-10-23)
DX: Z48.812 Encounter for surgical aftercare following surgery on the circulatory system (principal); R53.81 Other malaise; G89.18 Other acute postprocedural pain; I10 Essential (primary) hypertension; D62 Acute posthemorrhagic anemia; E83.51 Hypocalcemia; I48.2 Chronic atrial fibrillation; E78.5 Hyperlipidemia, unspecified; I25.10 Atherosclerotic heart disease of native coronary artery without angina pectoris; I70.221 Atherosclerosis of native arteries of extremities with rest pain, right leg; E11.51 Type 2 diabetes mellitus with diabetic peripheral angiopathy without gangrene; D47.3 Essential (hemorrhagic) thrombocythemia; J98.4 Other disorders of lung; E87.1 Hypo-osmolality and hyponatremia; K21.9 Gastro-esophageal reflux disease without esophagitis; Z87.891 Personal history of nicotine dependence; Z95.1 Presence of aortocoronary bypass graft; Z83.3 Family history of diabetes mellitus
CPT/HCPCS: 80048; 80053; 85025; 85027; 97110 GO; 97530 GP; A6214

== ENCOUNTER 2017-12-03 04:58 | Inpatient (IN) | payer OTHER ==
[~2017-12-03] VITALS: Ht 182.9 cm; Wt 82.6 kg
[~2017-12-03 04:58] MED LIST changes: +LISINOPRIL2.5 MG PO
[2017-12-03 05:40] LABS: BASOPHIL (%) 0.2 % (0-1); EOSINOPHIL (%) 0.1 % (0-5); HEMATOCRIT 34.8 % (38.0-50.0); HEMOGLOBIN 12.3 G/DL (12.5-16.6); IMMATURE GRANULOCYTE (%) 0.5 % (0.0-0.7); LYMPHOCYTE (%) 2.2 % (15-42); LYMPHOCYTE COUNT 0.3 K/uL (1.0-2.8); MCH 32.7 PG (29.0-34.0); MCHC 35.3 G/DL (30.0-36.0); MCV 92.6 FL (86-99); MONOCYTE (%) 4.7 % (3-12); MONOCYTE COUNT 0.7 K/uL (0-0.8); NEUTROPHIL (%) 92.3 % (45-76); NEUTROPHIL COUNT 13.2 K/uL (1.8-6.4); PLATELET COUNT 393 K/uL (156-360); RBC DIS.WIDTH-CV 13.7 % (11.8-14.6); RBC DIS.WIDTH-SD 46.4 % (39-53); RED BLOOD COUNT 3.76 M/uL (4.00-5.50); WHITE BLOOD COUNT 14.3 K/uL (4.1-10.2)
[2017-12-03 05:50] LABS: ALBUMIN 4.2 g/dL (3.2-4.8)
[2017-12-03 05:51] LABS: CHLORIDE 92 mEq/L (99-109); POTASSIUM 3.9 mEq/L (3.7-5.4); SODIUM 126 mEq/L (136-147)
[2017-12-03 05:53] LABS: GLUCOSE 161 mg/dL (70-99); TOTAL PROTEIN 7.5 g/dL (6.4-8.3)
[2017-12-03 05:55] LABS: TOTAL BILIRUBIN 0.9 mg/dL (0.0-1.0)
[2017-12-03 05:56] LABS: ALKALINE PHOSPHATASE 69 IU/L (3-129)
[2017-12-03 05:56] LABS: APPEARANCE CLEAR ((CLEAR)); BILIRUBIN NEGATIVE; BLOOD NEGATIVE; COLOR STRAW ((YELLOW)); GLUCOSE (STRIP) NEGATIVE; KETONES NEGATIVE; LEUKOCYTES NEGATIVE; NITRITE NEGATIVE; PROTEIN (STRIP) NEGATIVE; UCUL ADDED? NO; UROBILINOGEN 0.2 MG/DL (0.2-1.0)
[2017-12-03 05:57] LABS: CREATININE 0.9 mg/dL (0.6-1.3); GFR ESTIMATE (CALCULATED) > 59 mL/min/ (58.99-99999)
[2017-12-03 05:58] LABS: AST (GOT) 24 IU/L (2-34); UREA NITROGEN (BUN) 9 mg/dL (9-23)
[2017-12-03 06:00] LABS: ALT (GPT) 20 IU/L (3-49)
[2017-12-03 06:29] LABS: TROP-I INTERPRETATION NEGATIVE; TROPONIN-I < 0.01 ng/mL (0.0-0.30)
[2017-12-03 07:58] LABS: CREATINE KINASE 90 IU/L (1-294); TOTAL CK 90 IU/L (1-294)
[2017-12-03 08:14] LABS: PTT 38.4 SEC (25-37)
[2017-12-03 08:19] LABS: INTER. NORMALIZED RATIO 3.2
[2017-12-03 08:21] LABS: CK-MB 1.9 ng/mL (0.0-4.9); CKMB RELATIVE INDEX 2.1 (0.0-3.9)
[2017-12-03 08:29] LABS: MAGNESIUM 1.5 mg/dl (1.3-2.7)
[2017-12-03 10:00] VITALS: BP 105/78
[2017-12-03 12:53] VITALS: BP 103/61
[2017-12-03] MEDS ORDERED: SENNA LAX8.6 MG PO (14:59)
[2017-12-03] MEDS ORDERED: NITROSTAT0.4 MG SL (15:02)
[2017-12-03] MEDS ORDERED: CILOSTAZOL100 MG PO (15:03)
[2017-12-03] MEDS ORDERED: CYMBALTA20 MG PO (15:04)
[2017-12-03] MEDS ORDERED: NORVASC5 MG PO (15:04)
[2017-12-03 16:18] LABS: INTER. NORMALIZED RATIO 2.8
[2017-12-03 16:21] LABS: PTT 38.3 SEC (25-37)
[2017-12-03] MEDS ORDERED: HYDROCODON-ACE1 EAC7 PO (17:00)
[2017-12-03 17:09] LABS: CHLORIDE 96 MEQ/L (99-109); CREATININE 0.9 MG/DL (0.6-1.3); GFR ESTIMATE (CALCULATED) > 59 mL/min/ (58.99-99999); POTASSIUM 3.9 MEQ/L (3.7-5.4); SODIUM 122 MEQ/L (136-147); UREA NITROGEN (BUN) 11 mg/dL (9-23)
[2017-12-03 17:31] LABS: GLUCOSE 79 mg/dL (70-99)
[2017-12-03 20:55] VITALS: BP 150/98
[2017-12-03 23:06] VITALS: BP 102/61
[2017-12-04 02:58] VITALS: BP 112/70
[2017-12-04 06:14] LABS: BASOPHIL (%) 0.1 % (0-1); EOSINOPHIL (%) 0.1 % (0-5); HEMATOCRIT 27.8 % (38.0-50.0); IMMATURE GRANULOCYTE (%) 0.5 % (0.0-0.7); LYMPHOCYTE (%) 5.4 % (15-42); LYMPHOCYTE COUNT 0.6 K/uL (1.0-2.8); MCH 32.2 PG (29.0-34.0); MCHC 33.8 G/DL (30.0-36.0); MCV 95.2 FL (86-99); MONOCYTE (%) 4.5 % (3-12); MONOCYTE COUNT 0.5 K/uL (0-0.8); NEUTROPHIL (%) 89.4 % (45-76); NEUTROPHIL COUNT 9.1 K/uL (1.8-6.4); PLATELET COUNT 291 K/uL (156-360); RBC DIS.WIDTH-CV 14.3 % (11.8-14.6); RBC DIS.WIDTH-SD 49.7 % (39-53); WHITE BLOOD COUNT 10.2 K/uL (4.1-10.2)
[2017-12-04 06:19] LABS: HEMOGLOBIN 9.4 G/DL (12.5-16.6); RED BLOOD COUNT 2.92 M/uL (4.00-5.50)
[2017-12-04 06:22] LABS: ALBUMIN 2.9 G/DL (3.2-4.8); ALKALINE PHOSPHATASE 45 IU/L (3-129); ALT (GPT) 13 IU/L (3-49); AST (GOT) 15 IU/L (2-34); CHLORIDE 98 MEQ/L (99-109); CREATININE 0.7 MG/DL (0.6-1.3); GFR ESTIMATE (CALCULATED) > 59 mL/min/ (58.99-99999); POTASSIUM 4.1 MEQ/L (3.7-5.4); SODIUM 127 MEQ/L (136-147); TOTAL BILIRUBIN 0.6 MG/DL (0.0-1.0); TOTAL PROTEIN 5.1 G/DL (6.4-8.3); UREA NITROGEN (BUN) 9 mg/dL (9-23)
[2017-12-04 06:23] LABS: GLUCOSE 102 mg/dL (70-99)
[2017-12-04 07:38] VITALS: BP 149/90
[2017-12-04 10:58] VITALS: BP 136/89
[2017-12-04 17:07] VITALS: BP 162/108
[2017-12-04 20:22] VITALS: BP 152/122
[2017-12-05] VITALS (8 sets, daily range): BP systolic 119–173; BP diastolic 69–107
[2017-12-06 04:15] VITALS: BP 128/78
[2017-12-06 05:22] LABS: BASOPHIL (%) 0.1 % (0-1); EOSINOPHIL (%) 0 % (0-5); HEMOGLOBIN 9.8 G/DL (12.5-16.6); IMMATURE GRANULOCYTE (%) 0.9 % (0.0-0.7); LYMPHOCYTE (%) 3.7 % (15-42); LYMPHOCYTE COUNT 0.3 K/uL (1.0-2.8); MCH 32.8 PG (29.0-34.0); MCV 93.6 FL (86-99); MONOCYTE (%) 4.2 % (3-12); MONOCYTE COUNT 0.4 K/uL (0-0.8); NEUTROPHIL (%) 91.1 % (45-76); NEUTROPHIL COUNT 8.1 K/uL (1.8-6.4); PLATELET COUNT 297 K/uL (156-360); RBC DIS.WIDTH-CV 13.7 % (11.8-14.6); RBC DIS.WIDTH-SD 47.6 % (39-53); RED BLOOD COUNT 2.99 M/uL (4.00-5.50); WHITE BLOOD COUNT 8.9 K/uL (4.1-10.2)
[2017-12-06 06:11] LABS: CHLORIDE 93 MEQ/L (99-109); CREATININE 0.5 MG/DL (0.6-1.3); GFR ESTIMATE (CALCULATED) > 59 mL/min/ (58.99-99999); POTASSIUM 4.2 MEQ/L (3.7-5.4); SODIUM 127 MEQ/L (136-147); UREA NITROGEN (BUN) 10 mg/dL (9-23)
[2017-12-06 06:19] LABS: GLUCOSE 158 mg/dL (70-99)
[2017-12-06 07:23] VITALS: BP 142/90
[2017-12-06 12:00] VITALS: BP 118/79
[2017-12-06 18:10] VITALS: BP 150/92
[2017-12-06 20:15] VITALS: BP 156/92
[2017-12-07] VITALS (9 sets, daily range): BP systolic 124–168; BP diastolic 78–100
[2017-12-08 00:08] VITALS: BP 140/80
[2017-12-08 03:22] VITALS: BP 140/85
[2017-12-08 07:22] VITALS: BP 162/88
[2017-12-08] MEDS ORDERED: AUGMENTIN875 MG PO (11:45)
== END 2017-12-08 14:12 | disposition home health service (06) | DRG 854 ==
LOC: EME 04:58 → EDOF 07:37 → 4EAST 07:37 → ENRESERV 07:40 → 4EAST 10:01
PROVIDERS: Emergency Medicine; Hospitalist; Surgery
PROC: 0JBQ0ZZ Excision of Right Foot Subcutaneous Tissue and Fascia, Open Approach (ICD-10-PCS; principal; 2017-12-05)
DX: A40.9 Streptococcal sepsis, unspecified (principal); L02.415 Cutaneous abscess of right lower limb; E87.1 Hypo-osmolality and hyponatremia; I48.0 Paroxysmal atrial fibrillation; E78.5 Hyperlipidemia, unspecified; I25.10 Atherosclerotic heart disease of native coronary artery without angina pectoris; I27.20 Pulmonary hypertension, unspecified; K74.60 Unspecified cirrhosis of liver; Z95.5 Presence of coronary angioplasty implant and graft; Z79.01 Long term (current) use of anticoagulants; E11.51 Type 2 diabetes mellitus with diabetic peripheral angiopathy without gangrene; I10 Essential (primary) hypertension; Z87.891 Personal history of nicotine dependence; R79.1 Abnormal coagulation profile; T45.515A Adverse effect of anticoagulants, initial encounter; Z95.1 Presence of aortocoronary bypass graft
CPT/HCPCS: 71045; 73701; 74177; 80048; 80048 91; 80053; 80202; 81003; 82550; 82553; 82948; 83605; 83735; 83880; 84484; 85025; 85610; 85730; 87040; 87070; 87075; 87077; 87205; 87493; 87801; 93005; 93306; 93971; 94640; 94760; 94799; 99281; 99285; J0360; J0696; J1170; J1815; J1885; J2405; J2543; J3010; J3370; J3475; J3480; J7030; J7050; S0020